=== PATIENT | male | born 1965 | race Caucasian/White ===

== ENCOUNTER 2019-08-13 13:20 | Outpatient (CLI) | payer OTHER, SELFPAY | END 2019-08-13 13:21 | disposition home or self-care (01) | LOC: ANHAUDIO 13:28 | DX: H90.42 Sensorineural hearing loss, unilateral, left ear, with unrestricted hearing on the contralateral side (principal); H90.71 Mixed conductive and sensorineural hearing loss, unilateral, right ear, with unrestricted hearing on the contralateral side | CPT/HCPCS: 92557; 92567 ==

== ENCOUNTER 2020-09-01 12:52 | Outpatient (CLI) | payer OTHER, SELFPAY | END 2020-09-01 12:53 | disposition home or self-care (01) | LOC: ANHAUDIO 12:54 | PROVIDERS: PCP Internal Medicine; Visit Provider Internal Medicine | DX: H91.93 Unspecified hearing loss, bilateral (principal) | CPT/HCPCS: 92557; 92567 ==

== ENCOUNTER 2020-09-26 13:06 | Outpatient (RCR) | payer OTHER, SELFPAY | END 2020-09-26 23:59 | disposition home or self-care (01) | LOC: ANHAUDIO 13:06 | PROVIDERS: PCP Internal Medicine; Visit Provider Internal Medicine | DX: Z46.1 Encounter for fitting and adjustment of hearing aid (principal) | CPT/HCPCS: V5160; V5261 ==